=== PATIENT | male | born 1975 | race Caucasian/White ===

== ENCOUNTER 2019-06-19 02:04 | Emergency (ER) | payer MEDICAID ==
[~2019-06-19] VITALS: Ht 172.7 cm; Wt 91.0 kg
[2019-06-19 04:02] LABS: HEMATOCRIT. 40.3 % (42.0-52.0); MEAN CORPUSCULAR HEMOGLOBIN 31.1 pg (28.0-32.0); MEAN CORPUSCULAR VOLUME 89.8 fL (80.0-94.0); MEAN PLATELET VOLUME 8.9 fl (7.4-10.4); PLATELET 163 x1000/uL (130-400); RED BLOOD CELL COUNT 4.49 mill/uL (4.7-6.1)
[2019-06-19 04:08] LABS: CHLORIDE 105 mEq/L (98-107)
[2019-06-19 04:12] LABS: ETHANOL BLOOD < 10 mg/dL
[2019-06-19 04:15] LABS: INR 0.9; PROTHROMBIN TIME 10.3 sec (9.6-11.0)
[2019-06-19 04:38] LABS: PLATELET ESTIMATE NORMAL
[2019-06-19] MEDS ORDERED: IOHEXOL-300 100 ML BOTTLE ONE ×2 (05:19→05:20)
[2019-06-19 05:32] LABS: CLARITY URINE CLEAR (CLEAR); COLOR URINE YELLOW (YELLOW); KETONES URINE NEGATIVE (NEGATIVE); LEUKOCYTE ESTERASE URINE NEGATIVE (NEGATIVE); NITRITE URINE NEGATIVE (NEGATIVE); OCCULT BLOOD URINE NEGATIVE (NEGATIVE); PROTEIN URINE NEGATIVE (NEGATIVE); SPECIFIC GRAVITY URINE 1.021 (1.005-1.030); UROBILINOGEN URINE 0.2 E.U./dL (0.2-1.0)
[2019-06-19] MEDS ORDERED: HYDROCODONE/ACETAMINOPHEN 5/325MG TABLET PO STA (05:46)
[2019-06-19 06:06] VITALS: BP 134/82
== END 2019-06-19 06:00 | disposition home or self-care (01) ==
LOC: ER 02:04
DX: R10.9 Unspecified abdominal pain (principal); R07.9 Chest pain, unspecified
CPT/HCPCS: 36415; 71045; 71260; 74177; 80053; 80320; 81003; 83690; 83880; 84484; 85025; 85610; 93005; 99285; Q9967; G0480